=== PATIENT | female | born 1980 ===

== ENCOUNTER 2017-03-29 21:18 | Emergency (ER) | payer BC ==
--- NOTE | 2017-03-29 21:31 | Emergency Department Record ---
History of Present Illness - General Chief Complaint: Laceration(s) Stated Complaint: LT INDEX FINGER LACERATION Time Seen by Provider: 03/29/17 21:28 Source: Patient, Family Mode of Arrival: Ambulatory Limitations: No limitations - History of Present Illness Initial Commments: 36 yo female presents with a laceration to the left index finger. She was using a brand new knife opening a [place] toy and sliced her finger. NO sudden loss of ROM or sensation. She is right handed. Her tetanus is up to date. -: Minutes(s) Extremity Location: Left: Hand (Index finger) Place: Home Context: Accidental Associated Symptoms: None Treatments Prior to Arrival: Bandage - [place] Coma Scale Eye Response: (4) Open spontaneously Motor Response: (6) Obeys commands Verbal Response: (5) Oriented [place] Total: 15 - Related Data Previous Rx's Medication Instructions Recorded Cephalexin [Keflex] 500 mg PO TID #21 cap 03/29/17 Allergies Allergy/AdvReac Type Severity Reaction Status Date / Time Penicillins Allergy "maybe" ? Verified 03/29/17 21:30 Review of Systems Constitutional: Denies: Chills, Fever, Malaise, Weakness Eyes: Denies: Eye discharge ENT: Denies: Congestion Respiratory: Denies: Cough, Dyspnea Cardiovascular: Denies: Chest pain, Syncope Endocrine: Denies: Fatigue Gastrointestinal: Denies: Abdominal pain, Diarrhea, Nausea, Vomiting Genitourinary: Denies: Dysuria, Urgency Musculoskeletal: Denies: Arthralgia, Back pain, Joint swelling, Myalgia Skin: Reports: Other (laceration). Denies: Bruising, Change in color, Rash Neurological: Denies: Confusion Psychiatric: Reports: Anxiety Hematological/Lymphatic: Denies: Blood Clots, Easy bleeding, Easy bruising, Swollen glands Physical Exam - General General Appearance: Alert, Oriented x3, Cooperative Limitations: No limitations - Head Head exam: Atraumatic, Normal inspection - Eye Eye exam: Normal appearance. negative: Conjunctival injection, Scleral icterus - ENT ENT exam: Normal exam Ear exam: Normal external inspection Nasal Exam: Normal inspection Mouth exam: Normal external inspection - Neck Neck exam: Normal inspection - Cardiovascular Peripheral Pulses: 2+: Radial (L) - Rectal Rectal exam: Deferred - exam: Deferred - Extremities Extremities exam: Full ROM, Normal capillary refill. negative: Normal inspection, Joint swelling Image of Hand: 1 - 2cm laceration to the finger, full flexion and extendion on examination, no FB, examined in a bloodless field with brief application of a tornequete. 2 - The volar aspect of the central flexor tendon is visible with about 25% laceration noted when taken through a ROM. - Neurological Neurological exam: Alert, Oriented X3 - Psychiatric Psychiatric exam: Normal affect, Normal mood - Skin Skin exam: Dry, Intact, Normal color, Warm Course - Reevaluation(s) Reevaluation #1: Procedure Finger laceration 1.5cm Digital Block with Lidocaine 1% plain 4ml Betadine Prep Copious NS irrigation Brief use of a finger tourniquets to examine without bleeding The tendon was identified. When taken through a ROM a laceration of about 25% was identified. The patient's active and passive ROM is intact, The area was copiously irrigated The laceration was closed with 5 sutures of Prolene 4-0 suture She was splinted Keflex provided 03/29/17 21:35 03/29/17 22:10 I discussed the findings of partial tendon laceration on examination Her ROM is intact I recommend immobilizing with splint and follow up with hand surgeon The has seen Dr Hadley in the past and will call tomorrow 03/29/17 22:36 Disposition Disposition: Discharge Clinical Impression: Finger laceration, Tendon laceration Disposition: Home, Self-Care Condition: (1) Good Instructions: Laceration (ED) Additional Instructions: Keep the injury dry and clean Call tomorrow for close follow up with a hand surgeon for a partial tendon laceration Prescriptions: Cephalexin [Keflex] 500 mg PO TID #21 cap Referrals: ZINA HADLEY PHD DO [DOCTOR OF [facility]STEOPATH] - Forms: Patient Portal Access Time of Disposition: 22:10 Quality - Quality Measures Quality Measures: N/A - Blood Pressure Screening Does Patient Have Any of the Following: No Blood Pressure Classification: Hypertensive Reading Systolic Measurement: 138 Diastolic Measurement: 94 Screening for High Blood Pressure: < Pre-Hypertensive BP, F/U Documented > [ [id number]] Pre-Hypertensive Follow-up Interventions: Referral to alternative/primary care provider.
[2017-03-29] MEDS ORDERED: CEPHALEXIN 500 MG CAPSULE PO STA (22:08)
== END 2017-03-29 22:29 | disposition home or self-care (01) ==
LOC: ER 21:18
DX: S61.211A Laceration without foreign body of left index finger without damage to nail, initial encounter (principal); S66.121A Laceration of flexor muscle, fascia and tendon of left index finger at wrist and hand level, initial encounter; W26.0XXA Contact with knife, initial encounter; Y92.009 Unspecified place in unspecified non-institutional (private) residence as the place of occurrence of the external cause
CPT/HCPCS: 12001; 99283; 99284